=== PATIENT | female | born 1995 | race Caucasian/White ===

== ENCOUNTER 2022-01-16 20:15 | Emergency (ER) | payer BC ==
[2022-01-16] MEDS ORDERED: FAMOTIDINE 20 MG/2 ML VIAL IV STA (20:33)
[2022-01-16] MEDS ORDERED: diphenhydrAMINE 50 MG/ML 1 ML VIAL IVP STA (20:33)
[2022-01-16] MEDS ORDERED: SODIUM CHLORIDE 0.9% 1,000 ML IV STA (20:33)
[2022-01-16] MEDS ORDERED: methylPREDNISolone SOD SUCCI 125 MG/2 ML VIAL IV STA (20:33)
--- NOTE | 2022-01-16 23:00 | ED ---
Allergic Reaction HPI - General Chief complaint: Allergic Reaction Stated complaint: Allergic Reaction, [place] Time Seen by Provider: 01/16/22 20:30 Source: patient Mode of arrival: ambulatory Limitations: no limitations - History of Present Illness Initial Comments: Patient is a 26-year-old female who presents to the emergency department for possible allergic reaction. Patient noticed her left eyelid swelling approximately 30 minutes ago. Also reports fullness in her throat. Denies chest pain and shortness of breath. Denies eye pain, blurry vision, eye discharge, redness of the eye. Prior to arrival patient was [place] a quad [place]. She does not recall any history of allergies. Does not recall any bug bites. Has not used any new skin products or soaps. - Related Data Allergies Allergy/AdvReac Type Severity Reaction Status Date / Time No Known Allergies Allergy Verified 01/16/22 20:21 Review of Systems ROS Statement: Those systems with pertinent positive or pertinent negative responses have been documented in the HPI. ROS Other: All systems not noted in ROS Statement are negative. Past Medical History Past Medical History: No Reported History History of Any Multi-Drug Resistant Organisms: None Reported Past Surgical History: No Surgical Hx Reported Past Psychological History: No Psychological Hx Reported Smoking Status: Never smoker Past Alcohol Use History: Occasional Past Drug Use History: None Reported General Exam Limitations: no limitations General appearance: alert, in no apparent distress Head exam: Present: atraumatic, normocephalic, normal inspection Eye exam: Present: normal appearance, PERRL, EOMI, other (mild left eyelid swelling ). Absent: scleral icterus, conjunctival injection ENT exam: Present: normal oropharynx Respiratory exam: Present: normal lung sounds bilaterally. Absent: respiratory distress, wheezes, rales, rhonchi, stridor Cardiovascular Exam: Present: regular rate, normal rhythm, normal heart sounds. Absent: systolic murmur, diastolic murmur, rubs, gallop, clicks Neurological exam: Present: alert, oriented X3, CN II-XII intact Psychiatric exam: Present: normal affect, normal mood Course Vital Signs 01/16/22 01/16/22 01/16/22 20:22 20:33 21:30 Temperature 98.1 F Pulse Rate 117 H 104 H 75 Respiratory 18 16 16 Rate Blood Pressure 138/78 135/97 127/79 O2 Sat by Pulse 100 98 99 Oximetry 01/16/22 23:00 Temperature 97.5 F L Pulse Rate 67 Respiratory 15 Rate Blood Pressure 124/68 O2 Sat by Pulse 98 Oximetry Medical Decision Making - Medical Decision Making This is a 26-year-old female who presents with allergic reaction. Patient well- appearing and in no apparent distress. Vitals within normal limits. Patient given allergy cocktail. She was observed closely in the emergency department and did not have any episodes of shortness of breath or trouble breathing. Eyelid swelling improved. Throat fullness resolved completely. Patient will be discharged with strict return parameters. Dr. Camarena is my attending. Disposition Clinical Impression: Allergic reaction Disposition: HOME SELF-CARE Condition: Good Instructions (If sedation given, give patient instructions): General Allergic Reaction (ED) Additional Instructions: Please follow up with primary care provider. Take Benadryl [id number] as needed for any continued eyelid swelling. Return to the emergency department if you experience new, concerning, or worsening symptoms. Is patient prescribed a controlled substance at d/c from ED?: No Referrals: Lg Diamond MD [Primary Care Provider] - 1-2 days
[2022-01-16 23:16] VITALS: BP 124/68; PULSE 67; RESP 15; TEMP 97.5
== END 2022-01-16 23:16 | disposition home or self-care (01) ==
LOC: EC 20:15
DX: T78.40XA Allergy, unspecified, initial encounter (principal)
CPT/HCPCS: 99283; 96374; 96375; 96361; J1200; J2930